=== PATIENT | female | born 1965 | race Two or more races ===

== ENCOUNTER → 2020-05-11 | Day surgery (SDC) | payer BC ==
--- OUTSIDE RECORDS SUMMARY | 2020-05-11 09:32 | XMS ---
:1965 Author Organization [facility] Support Name Relationship Address Phone YOBE Unavailable [address] [place] [address] REY MCCLELLAN DAUGHTER [address] [place] [address] Re-disclosure Warning The records that you are about to access may contain information from federally- assisted alcohol or drug abuse programs. If such information is present, then the following federally mandated warning applies: This information has been disclosed to you from records protected by federal confidentiality rules (42 CFR part 2). The federal rules prohibit you from making any further disclosure of this information unless further disclosure is expressly permitted by the written consent of the person to whom it pertains or as otherwise permitted by 42 CFR part 2. A general authorization for the release of medical or other information is NOT sufficient for this purpose. The Federal rules restrict any use of the information to criminally investigate or prosecute any alcohol or drug abuse patient.The records that you are about to access may contain highly sensitive health information, the redisclosure of which is protected by Article 27-F of the [facility] Public Health law. If you continue you may haveaccess to information: Regarding HIV / AIDS; Provided by facilities licensed or operated by the [facility] Office of Mental Health; or Provided by the [facility] Office for People With Developmental Disabilities. If such information is present, then the following [facility] mandated warning applies: This information has been disclosed to you from confidential records which are protected by state law. State law prohibits you from making any further disclosure of this information without the specific written consent of the person to whom it pertains, or as otherwise permitted by law. Any unauthorized further disclosure in violation of state law may result in a fine or longterm sentence or both. A general authorization for the release of medical or other information is NOT sufficient authorization for further disclosure. Insurance Providers Payer name Policy type / Policy ID Covered Covered republican's Policy Plan Coverage type republican ID relationship to Fritz Information [employer] PPO [id number] SP [id number]
--- NOTE | 2020-05-13 13:03 | PATH ---
Cytology Non-Gynecological Report Patient Name: DIANE RICHARDS [facility]. Rec. #: [id number] /Age/Gender: 1965 (Age: 54) / F Account: [id number] Location: RADIOLOGY INTER Taken: 05/11/2020 Received: 05/11/2020 Reported: 05/13/2020 Physicians: Juaquin Shaw M.D. Specimen(s) Received ISTHMUS FINE NEEDLE ASPIRATION Clinical History Isthmus nodule 1.21 x 0.43 x 0.74 cm Final Diagnosis THYROID, ISTHMUS, FINE NEEDLE ASPIRATION SATISFACTORY FOR EVALUATION. BETHESDA CLASS II: BENIGN FEW CLUSTERS OF SMALL FOLLICULAR CELLS, COLLOID AND MANY SCATTERED LYMPHOCYTES PRESENT. SEE COMMENT. Comment: The presence of lymphocytes is suggestive of chronic lymphocytic thyroiditis. Clinical correlation with other data is recommended. Electronically Signed Kvng Huber M.D. Gross Description Received are eight direct smears, four of which are air-dried and Diff-Quik stained, and four of which are alcohol fixed and Pap stained. Also received is 20 ml of bloody formalin from which one cellblock is prepared.
== END | disposition home or self-care (01) ==
LOC: JRADIR 09:19
PROVIDERS: ATTEND Internal Medicine
PROC: 0G9K3ZX Drainage of Thyroid Gland, Percutaneous Approach, Diagnostic (ICD-10-PCS; principal; 2020-05-11)
DX: E04.1 Nontoxic single thyroid nodule (principal)
CPT/HCPCS: 76942; 88173; 88305-TC